=== PATIENT | female | born 1975 | race Caucasian/White ===

== ENCOUNTER 2021-07-30 02:10 | Inpatient (IN) ==
[2021-07-30] MEDS ORDERED: Ondansetron 4 MG/2 ML VIAL IVP PRN (11:56)
[2021-07-30] MEDS ORDERED: Naloxone 0.4 MG/ML INJ IVP PRN (11:56)
[2021-07-30] MEDS ORDERED: Melatonin 3 MG TABLET PO PRN (11:56)
[2021-07-30] MEDS ORDERED: Nicotine 2 MG GUM BC PRN (11:59)
[2021-07-30] MEDS: Nicotine 14 MG PATCH.TD24 TD SCH (12:23)
[2021-07-30] MEDS: 0.9 % Sodium Chloride 1,000 ML IVC SCH ×2 (12:23→20:16)
[2021-07-30 13:08] LABS: Basophils % 0.2 %; Hematocrit 41.8 % (35.3-44.9); Hemoglobin 14.3 g/dL (11.5-15.4); Immature Granulocytes % 0.5 % (0-4); Lymphocytes # 1.5 K/mcL (0.6-4.6); Lymphocytes % 6.7 %; Mean Corpuscular HGB Conc 34.2 g/dL (31.6-35.5); Mean Corpuscular Hemoglobin 31.2 pg (28.0-33.3); Mean Corpuscular Volume 91.3 fL (83.0-100.0); Mean Platelet Volume 9.6 fL (9.4-12.4); Monocytes # 1.2 K/mcL (0.0-1.3); Monocytes % 5.2 %; Neutrophils # 19.3 K/mcL (1.6-8.9); Platelet Count 334 K/mcL (140-400); Red Blood Count 4.58 M/mcL (3.82-4.97); Red Cell Distribution Width 11.6 % (11.5-14.5); Segmented Neutrophils % 87.4 %; White Blood Count 22.1 K/mcL (4.3-11.1)
[2021-07-30 13:23] LABS: BUN/Creatinine Ratio 12 (6-26); Blood Urea Nitrogen 8 mg/dL (6-20); Calcium 9.3 mg/dL (8.6-10.3); Carbon Dioxide 25 mEq/L (23-29); Chloride 99 mEq/L (98-107); Glucose 99 mg/dL (70-105); Osmolality,Calculated 276 (280-300); Potassium 3.5 mEq/L (3.5-5.1); Sodium 134 mEq/L (136-145); eGFR For African Americans > 60 (> 60); eGFR For Non-African Americans > 60 (> 60)
[2021-07-30] MEDS: Piperacillin/Tazobactam 3.375 GM in 0.9 % Sodium Chloride Mini Bag 100 ML IVPB SCH ×2 (15:40→23:41)
[2021-07-30] MEDS: Acetaminophen 325 MG TABLET PO PRN ×2 (17:34→22:45)
[2021-07-31 04:49] LABS: Hematocrit 37.9 % (35.3-44.9); Mean Corpuscular HGB Conc 33.5 g/dL (31.6-35.5); Mean Corpuscular Hemoglobin 31.4 pg (28.0-33.3); Mean Corpuscular Volume 93.8 fL (83.0-100.0); Mean Platelet Volume 9.8 fL (9.4-12.4); Platelet Count 303 K/mcL (140-400); Red Blood Count 4.04 M/mcL (3.82-4.97); Red Cell Distribution Width 11.7 % (11.5-14.5); White Blood Count 17.7 K/mcL (4.3-11.1)
[2021-07-31 04:50] LABS: Hemoglobin 12.7 g/dL (11.5-15.4)
[2021-07-31 05:06] LABS: INR 1.5; Prothrombin Time 17.2 Seconds (9.4-12.1)
[2021-07-31 05:09] LABS: BUN/Creatinine Ratio 14 (6-26); Blood Urea Nitrogen 9 mg/dL (6-20); Calcium 8.7 mg/dL (8.6-10.3); Carbon Dioxide 23 mEq/L (23-29); Chloride 104 mEq/L (98-107); Glucose 91 mg/dL (70-105); Magnesium 1.9 mg/dL (1.6-2.6); Osmolality,Calculated 282 (280-300); Potassium 3.6 mEq/L (3.5-5.1); Sodium 137 mEq/L (136-145); eGFR For African Americans > 60 (> 60); eGFR For Non-African Americans > 60 (> 60)
[2021-07-31] MEDS: Acetaminophen 325 MG TABLET PO PRN ×2 (08:07→17:51)
[2021-07-31] MEDS: Nicotine 14 MG PATCH.TD24 TD SCH (08:08)
[2021-07-31] MEDS: Piperacillin/Tazobactam 3.375 GM in 0.9 % Sodium Chloride Mini Bag 100 ML IVPB SCH ×3 (08:08→23:59)
[2021-08-01 07:52] LABS: Hematocrit 35.1 % (35.3-44.9); Hemoglobin 11.7 g/dL (11.5-15.4); Mean Corpuscular HGB Conc 33.3 g/dL (31.6-35.5); Mean Corpuscular Hemoglobin 30.9 pg (28.0-33.3); Mean Corpuscular Volume 92.6 fL (83.0-100.0); Mean Platelet Volume 9.6 fL (9.4-12.4); Platelet Count 338 K/mcL (140-400); Red Blood Count 3.79 M/mcL (3.82-4.97); Red Cell Distribution Width 11.8 % (11.5-14.5); White Blood Count 14.1 K/mcL (4.3-11.1)
[2021-08-01 08:07] LABS: BUN/Creatinine Ratio 11 (6-26); Blood Urea Nitrogen 8 mg/dL (6-20); Calcium 8.9 mg/dL (8.6-10.3); Carbon Dioxide 24 mEq/L (23-29); Chloride 99 mEq/L (98-107); Glucose 82 mg/dL (70-105); Osmolality,Calculated 277 (280-300); Potassium 3.3 mEq/L (3.5-5.1); Sodium 135 mEq/L (136-145); eGFR For African Americans > 60 (> 60); eGFR For Non-African Americans > 60 (> 60)
[2021-08-01] MEDS: Piperacillin/Tazobactam 3.375 GM in 0.9 % Sodium Chloride Mini Bag 100 ML IVPB SCH ×2 (08:20→19:07)
[2021-08-01] MEDS: Nicotine 14 MG PATCH.TD24 TD SCH (08:21)
[2021-08-02] MEDS: Piperacillin/Tazobactam 3.375 GM in 0.9 % Sodium Chloride Mini Bag 100 ML IVPB SCH ×4 (00:11→23:58)
[2021-08-02 05:42] LABS: Hematocrit 35.9 % (35.3-44.9); Mean Corpuscular HGB Conc 33.4 g/dL (31.6-35.5); Mean Corpuscular Hemoglobin 31.2 pg (28.0-33.3); Mean Corpuscular Volume 93.2 fL (83.0-100.0); Mean Platelet Volume 9.5 fL (9.4-12.4); Platelet Count 333 K/mcL (140-400); Red Blood Count 3.85 M/mcL (3.82-4.97); Red Cell Distribution Width 11.9 % (11.5-14.5); White Blood Count 12.9 K/mcL (4.3-11.1)
[2021-08-02 06:09] LABS: Carbon Dioxide 26 mEq/L (23-29); Chloride 97 mEq/L (98-107); Glucose 87 mg/dL (70-105); Potassium 3.3 mEq/L (3.5-5.1); Sodium 134 mEq/L (136-145); eGFR For African Americans > 60 (> 60); eGFR For Non-African Americans > 60 (> 60)
[2021-08-02 06:32] LABS: BUN/Creatinine Ratio 13 (6-26); Blood Urea Nitrogen 9 mg/dL (6-20); Calcium 8.9 mg/dL (8.6-10.3); Osmolality,Calculated 276 (280-300)
[2021-08-02] MEDS ORDERED: Isovue-370 500 ML BOTTLE IVP ONE (07:13)
[2021-08-02] MEDS: Nicotine 14 MG PATCH.TD24 TD SCH (08:11)
[2021-08-02] MEDS ORDERED: Isovue-370 500 ML BOTTLE PO ONE (10:24)
[2021-08-02] MEDS ORDERED: *HR* FentaNYL (PF) 100 MCG/2 ML VIAL ONE (12:43)
[2021-08-02] MEDS ORDERED: *HR* Rocuronium Bromide 50 MG/5 ML VIAL ONE ×2 (12:43→14:34)
[2021-08-02] MEDS ORDERED: Ondansetron 4 MG/2 ML VIAL ONE (12:43)
[2021-08-02] MEDS ORDERED: *HR* Succinylcholine 200 MG/10 ML VIAL IVP ONE (12:43)
[2021-08-02] MEDS ORDERED: Lidocaine -MPF 4% 5 ML AMPUL ONE (12:43)
[2021-08-02] MEDS ORDERED: *HR* Midazolam HCl 2 MG/2 ML VIAL ONE (12:43)
[2021-08-02] MEDS ORDERED: Lidocaine -MPF 2% 2 ML VIAL ONE ×2 (12:43→12:45)
[2021-08-02] MEDS ORDERED: *HR* Propofol 200 MG/20 ML VIAL IVP ONE (12:43)
[2021-08-02] MEDS ORDERED: Lidocaine -MPF 2% 5 ML VIAL ONE (12:58)
[2021-08-02] MEDS ORDERED: Acetaminophen IV 1,000 MG/100 ML BAG IVPB ONE (14:23)
[2021-08-02] MEDS ORDERED: Neostigmine Methylsulfate 3 MG/3 ML SYRINGE ONE (15:15)
[2021-08-02] MEDS ORDERED: *HR* HYDROMORPHONE 2 MG/ML VIAL ONE (15:18)
[2021-08-02] MEDS ORDERED: Nicotine 2 MG GUM BC PRN (17:09)
[2021-08-02] MEDS ORDERED: Melatonin 3 MG TABLET PO PRN (17:09)
[2021-08-02] MEDS ORDERED: Ondansetron 4 MG/2 ML VIAL IVP PRN (17:09)
[2021-08-02] MEDS ORDERED: Naloxone 0.4 MG/ML INJ IVP PRN (17:09)
[2021-08-02] MEDS ORDERED: Morphine PCA 30 MG/ 30 ML 30 ML PCA.VIAL IVC PRN (17:09)
[2021-08-02] MEDS: *HR* Heparin 5,000 UNIT/ML VIAL SQ SCH (18:42)
[2021-08-02] MEDS: Ketorolac 15 MG/ML VIAL IVP SCH ×2 (18:42→23:58)
[2021-08-02] MEDS: Fluconazole 400 MG/200 ML 400 MG/200 ML BAG IVPB SCH (20:41)
[2021-08-02] MEDS: Acetaminophen IV 1,000 MG/100 ML BAG IVPB SCH (20:42)
[2021-08-02] MEDS ORDERED: 0.9 % Sodium Chloride 1,000 ML IVC SCH (21:15)
[2021-08-03 02:08] LABS: Hematocrit 35.9 % (35.3-44.9); Hemoglobin 11.8 g/dL (11.5-15.4); Mean Corpuscular HGB Conc 32.9 g/dL (31.6-35.5); Mean Corpuscular Hemoglobin 30.8 pg (28.0-33.3); Mean Corpuscular Volume 93.7 fL (83.0-100.0); Mean Platelet Volume 9.5 fL (9.4-12.4); Platelet Count 330 K/mcL (140-400); Red Blood Count 3.83 M/mcL (3.82-4.97); Red Cell Distribution Width 11.9 % (11.5-14.5); White Blood Count 12.4 K/mcL (4.3-11.1)
[2021-08-03 02:17] LABS: BUN/Creatinine Ratio 20 (6-26); Blood Urea Nitrogen 13 mg/dL (6-20); Calcium 8.5 mg/dL (8.6-10.3); Carbon Dioxide 25 mEq/L (23-29); Chloride 99 mEq/L (98-107); Glucose 127 mg/dL (70-105); Osmolality,Calculated 282 (280-300); Sodium 135 mEq/L (136-145); eGFR For African Americans > 60 (> 60); eGFR For Non-African Americans > 60 (> 60)
[2021-08-03] MEDS: Acetaminophen IV 1,000 MG/100 ML BAG IVPB SCH ×4 (03:38→20:07)
[2021-08-03] MEDS: Ketorolac 15 MG/ML VIAL IVP SCH ×3 (05:42→19:51)
[2021-08-03] MEDS: *HR* Heparin 5,000 UNIT/ML VIAL SQ SCH ×2 (05:43→18:18)
[2021-08-03] MEDS: Piperacillin/Tazobactam 3.375 GM in 0.9 % Sodium Chloride Mini Bag 100 ML IVPB SCH ×2 (08:28→14:47)
[2021-08-03] MEDS: Pantoprazole 40 MG VIAL IVP SCH (08:29)
[2021-08-03] MEDS ORDERED: Lidocaine -MPF 1% 5 ML AMPUL INFILT ONE (11:03)
[2021-08-03] MEDS: Ipratropium/Albuterol Neb 3 ML IH SCH ×4 (11:14→22:34)
[2021-08-03] MEDS: Nicotine 14 MG PATCH.TD24 TD SCH (19:42)
[2021-08-03] MEDS: Fluconazole 400 MG/200 ML 400 MG/200 ML BAG IVPB SCH (20:35)
[2021-08-04] MEDS: Ketorolac 15 MG/ML VIAL IVP SCH ×4 (01:22→17:49)
[2021-08-04] MEDS: Ipratropium/Albuterol Neb 3 ML IH SCH ×4 (03:44→22:22)
[2021-08-04] MEDS: Acetaminophen IV 1,000 MG/100 ML BAG IVPB SCH ×3 (05:38→20:56)
[2021-08-04 06:46] LABS: Basophils % 0.3 %; Eosinophils # 0.1 K/mcL (0.0-0.6); Eosinophils % 1.4 %; Hematocrit 32.4 % (35.3-44.9); Hemoglobin 10.6 g/dL (11.5-15.4); Lymphocytes # 1.4 K/mcL (0.6-4.6); Lymphocytes % 15.1 %; Mean Corpuscular HGB Conc 32.7 g/dL (31.6-35.5); Mean Corpuscular Hemoglobin 30.8 pg (28.0-33.3); Mean Corpuscular Volume 94.2 fL (83.0-100.0); Mean Platelet Volume 9.4 fL (9.4-12.4); Monocytes # 0.7 K/mcL (0.0-1.3); Monocytes % 7.1 %; Neutrophils # 6.9 K/mcL (1.6-8.9); Platelet Count 302 K/mcL (140-400); Red Blood Count 3.44 M/mcL (3.82-4.97); Red Cell Distribution Width 12.3 % (11.5-14.5); Segmented Neutrophils % 75.1 %; White Blood Count 9.1 K/mcL (4.3-11.1)
[2021-08-04] MEDS: *HR* Heparin 5,000 UNIT/ML VIAL SQ SCH ×2 (06:48→16:56)
[2021-08-04 07:09] LABS: BUN/Creatinine Ratio 30 (6-26); Blood Urea Nitrogen 17 mg/dL (6-20); Calcium 8.6 mg/dL (8.6-10.3); Carbon Dioxide 28 mEq/L (23-29); Chloride 101 mEq/L (98-107); Glucose 93 mg/dL (70-105); Osmolality,Calculated 283 (280-300); Potassium 3.9 mEq/L (3.5-5.1); Sodium 136 mEq/L (136-145); eGFR For African Americans > 60 (> 60); eGFR For Non-African Americans > 60 (> 60)
[2021-08-04] MEDS: Pantoprazole 40 MG VIAL IVP SCH (09:27)
[2021-08-04] MEDS: *HR* OxyCODONE/APAP 5/325 TABLET PO PRN (09:43)
[2021-08-04] MEDS ORDERED: Fluconazole 400 MG/200 ML 400 MG/200 ML BAG IVPB SCH (12:15)
[2021-08-04] MEDS: Piperacillin/Tazobactam 3.375 GM in 0.9 % Sodium Chloride Mini Bag 100 ML IVPB SCH (16:55)
[2021-08-04] MEDS ORDERED: Fluconazole 100 MG TABLET PO SCH (20:00)
[2021-08-04] MEDS: Nicotine 14 MG PATCH.TD24 TD SCH (20:36)
[2021-08-05] MEDS: Ketorolac 15 MG/ML VIAL IVP SCH ×2 (00:31→06:51)
[2021-08-05] MEDS: Piperacillin/Tazobactam 3.375 GM in 0.9 % Sodium Chloride Mini Bag 100 ML IVPB SCH ×2 (00:32→08:52)
[2021-08-05] MEDS ORDERED: Ipratropium/Albuterol Neb 3 ML IH PRN (03:31)
[2021-08-05] MEDS: Acetaminophen IV 1,000 MG/100 ML BAG IVPB SCH (04:33)
[2021-08-05 05:45] LABS: Hematocrit 31.7 % (35.3-44.9); Hemoglobin 10.2 g/dL (11.5-15.4); Mean Corpuscular HGB Conc 32.2 g/dL (31.6-35.5); Mean Corpuscular Hemoglobin 30.6 pg (28.0-33.3); Mean Corpuscular Volume 95.2 fL (83.0-100.0); Mean Platelet Volume 9.5 fL (9.4-12.4); Platelet Count 324 K/mcL (140-400); Red Blood Count 3.33 M/mcL (3.82-4.97); Red Cell Distribution Width 12.6 % (11.5-14.5); White Blood Count 8.5 K/mcL (4.3-11.1)
[2021-08-05 06:12] LABS: BUN/Creatinine Ratio 20 (6-26); Blood Urea Nitrogen 15 mg/dL (6-20); Calcium 8.6 mg/dL (8.6-10.3); Carbon Dioxide 28 mEq/L (23-29); Chloride 102 mEq/L (98-107); Glucose 90 mg/dL (70-105); Osmolality,Calculated 284 (280-300); Potassium 3.8 mEq/L (3.5-5.1); Sodium 137 mEq/L (136-145); eGFR For African Americans > 60 (> 60); eGFR For Non-African Americans > 60 (> 60)
[2021-08-05] MEDS: *HR* Heparin 5,000 UNIT/ML VIAL SQ SCH (06:50)
[2021-08-05] MEDS: Pantoprazole 40 MG VIAL IVP SCH (08:53)
[2021-08-05] MEDS ORDERED: Fluconazole 400 MG/200 ML 400 MG/200 ML BAG IVPB SCH (09:00)
[2021-08-05 10:49] VITALS: BP 118/82; PULSE 76; TEMP 98; O2SAT 94
[2021-08-05] MEDS: *HR* OxyCODONE/APAP 5/325 TABLET PO PRN (10:57)
== END 2021-08-05 12:11 | disposition home health service (06) | DRG 710 ==
LOC: 3ANU → SUATTDRO 12:23
PROVIDERS: ADMIT Internal Medicine; ATTEND Internal Medicine